=== PATIENT | female | born 1945 | race Caucasian/White ===

== ENCOUNTER 2017-04-01 09:53 | Emergency (ER) | payer MEDICARE, BC ==
[2017-04-01 11:04] VITALS: BP 210/80
--- NOTE | 2017-04-01 11:21 | UC ---
Ear Complaint HPI - HPI Summary HPI Summary: 71 female presents with complaint of hearing loss in left ear x3 days. States it feels plugged. Denies FB, discharge, use of q-tips and fever/chills. Denies pain. States she just has significant hearing loss to where she can not hear when plugging her right ear. States it happened suddenly upon waking 3 days ago. Denies any trauma/injury or loud noises. Admits to hearing tinnitus at times. Denies headache, dizziness, other sensory problems and hearing loss in right ear. - History of Current Complaint Chief Complaint: UCEar Stated Complaint: EAR PAIN Time Seen by Provider: 04/01/17 10:57 Hx Obtained From: Patient Onset/Duration: Sudden Onset, Lasting Days - 3, Still Present Severity Initially: Mild Severity Currently: None Pain Intensity: 0 Pain Scale Used: 0-10 Numeric Aggravating Factors: Nothing Alleviating Factors: Nothing Associated Signs/Symptoms: Positive: Hearing Loss - Allergies/Home Medications Allergies/Adverse Reactions: Allergies Allergy/AdvReac Type Severity Reaction Status Date / Time Amphetamines Allergy See Comment Verified 04/01/17 10:51 Barbiturates Allergy See Comment Verified 04/01/17 10:51 Home Medications: Home Medications Amlodipine Besylate [Norvasc 5 mg tab] 1 tab PO DAILY 04/01/17 [History Confirmed 04/01/17] Carbidopa/Levodop 25/100 MG(*) [Sinemet 25/100 TAB(*)] 1 tab PO TID 04/01/17 [ History Confirmed 04/01/17] Cyclobenzaprine HCl [Flexeril 5 mg (NF)] 1 tab PO BEDTIME PRN 04/01/17 [History Confirmed 04/01/17] Hydrocodone-Acetaminophen [[place] 5-325 mg] 1 tab PO Q4HR PRN 04/01/17 [History Confirmed 04/01/17] Triamcinolone PASTE 0.1% (NF) [Triamcinolone 0.1% PASTE *] 1 applic TOPICAL BID 04/01/17 [History Confirmed 04/01/17] PMH/Surg Hx/FS Hx/Imm Hx - Additional Past Medical History Additional PMH: PMHx significant for HTN and prakinsons' - Surgical History Surgical History: Yes Surgery Procedure, Year, and Place: february 2004 spinal surgery; cholecystectomy/ appendectomy; T and A; bunion - Family History Known Family History: Positive: None - Social History Alcohol Use: Daily Substance Use Type: None Smoking Status (MU): Never Smoked Tobacco - Immunization History Most Recent Tetanus Shot: not sure Review of Systems Constitutional: Negative Skin: Negative Eyes: Negative ENT: Other - hearing loss Respiratory: Negative Cardiovascular: Negative Neurovascular: Negative Musculoskeletal: Negative Neurological: Negative All Other Systems Reviewed And Are Negative: Yes Physical Exam Triage Information Reviewed: Yes Appearance: Well-Appearing, No Pain Distress, Well-Nourished Vital Signs: Initial Vital Signs Temp 97.0 F 04/01/17 10:47 Pulse 71 04/01/17 10:47 Resp 16 04/01/17 10:47 Pulse Ox 99 04/01/17 10:47 Bp elevated 210/91 compared to previous visit and had similar BP. States her BP spikes when at doctor's office every time, it is monitored and she takes it at home where it is 130/70's range. Vital Signs Reviewed: Yes Eyes: Positive: Conjunctiva Clear ENT: Positive: Normal ENT inspection, Pharynx normal, TMs normal - normal EAC no cerumen or foreign body, no signs of infection, Other: - hearing abnormal on left ear with whisper hearing test. unable to hear in left ear, right ear normal.. Negative: TM bulging, TM dull, TM red Neck exam: Normal Neck: Positive: Supple, Nontender Respiratory: Positive: Chest non-tender, Lungs clear, Normal breath sounds, No respiratory distress, No accessory muscle use Cardiovascular: Positive: RRR, No Murmur, Pulses Normal Musculoskeletal: Positive: Strength Intact, ROM Intact Neurological: Positive: Alert Psychological: Positive: Age Appropriate Behavior Skin Exam: Normal Ear Complaint Course/Dx - Course Course Of Treatment: due to PE findings and HPI appears patient is suffering from possible sensorineural hearing loss as there is no sign of conductive hearing loss on exam. referred to ENT however patient stated she goes through [facility] and would like to stay in the same system. Will follow up. Aware of worsening signs and symptoms. - Differential Dx/Diagnosis Provider Diagnoses: Hearing impairment/loss left ear Discharge - Discharge Plan Condition: Stable Disposition: HOME Patient Education Materials: Hearing Loss (ED) Referrals: No Primary Care Phys,NOPCP [Primary Care Provider] - Additional Instructions: Please make an appointment with ENT at [facility] to be seen within the next week or two. If new symptoms develop or worsen please return or seek medical attention promptly.
== END 2017-04-01 11:25 | disposition home or self-care (01) ==
LOC: UCEAST 09:53
DX: H91.92 Unspecified hearing loss, left ear (principal)
CPT/HCPCS: 99211; G0463

== ENCOUNTER 2019-05-29 21:10 | Emergency (ER) | payer MEDICARE, BC ==
[2019-05-29 22:38] LABS: ABS Eosinophils 0.2 10^3/ul (0-0.6); ABS Lymphocytes 1.2 10^3/ul (1.0-4.8); ABS Monocytes 0.6 10^3/ul (0-0.8); ABS Neutrophils 4.6 10^3/ul (1.5-7.7); Eosinophil % 2.4 %; Hematocrit 39 % (35-47); Hemoglobin 13.6 g/dL (12.0-16.0); Lymphocyte % 17.8 %; Mean Corpuscular HGB Conc 35 g/dL (31-36); Mean Corpuscular Hemoglobin 31 pg (27-31); Mean Corpuscular Volume 91 fL (80-97); Mean Platelet Volume 8.6 fL (7.4-10.4); Platelet Count 225 10^3/uL (150-450); Red Blood Count 4.36 10^6 /uL (3.70-4.87); Red Cell Distribution Width 14 % (10-15); White Blood Count 6.6 10^3/uL (3.5-10.8)
[2019-05-29 22:56] LABS: Albumin 4.2 g/dL (3.2-5.2); Albumin/Globulin Ratio 1.8 (1-3); BUN/Creatinine Ratio 38.7 (8-20); Calcium 9.2 mg/dL (8.6-10.3); EGFR African American 71.5 (>60); EGFR Non-African American 59.1 (>60); Globulin 2.3 g/dL (2-4); Magnesium 2.2 mg/dL (1.9-2.7); Potassium 3.6 mmol/L (3.5-5.0); Total Bilirubin 0.4 mg/dL (0.2-1.0); Total Protein 6.5 g/dL (6.4-8.9)
[2019-05-29 22:58] LABS: Troponin I 0.01 ng/mL (<0.04)
--- NOTE | 2019-05-30 00:06 | ED ---
Neurological HPI - HPI Summary HPI Summary: 73 year old F presenting to [facility] with a chief complaint of falling while doing the dishes secondary to losing balance occurring tonight. She was unable to stand back up because of failure to initiate movement in her lower extremities, secondary to Parkinsons disease. The patient felt normal before the fall and reports no current pain. She fell on her buttocks and didn't hit her head. Her was concerned because her speech was slow and she had trouble initiating movement. She denies lightheadedness, headache, chest pain, shortness of breath, or nausea. Patient is currently able to ambulate. History of arthritis. - History of Current Complaint Chief Complaint: EDFall Stated Complaint: FELL DOING DISHES PER PT Time Seen by Provider: 05/29/19 23:49 Hx Obtained From: Patient Onset/Duration: Sudden Onset Timing: Sudden Onset Onset Severity: Mild Current Severity: None Pain Intensity: 0 Pain Scale Used: 0-10 Numeric Character: Motor Weakness, Other: - loss of balance Aggravating: Unknown Alleviating: Spontanious Resolution Associated Signs and Symptoms: Negative: Headache, Lightheadness, Nausea/ Vomiting, Chest Pain - Allergy/Home Medications Allergies/Adverse Reactions: Allergies Allergy/AdvReac Type Severity Reaction Status Date / Time MS Amphetamines Allergy See Comment Verified 05/29/19 21:21 [Amphetamines] MS Barbiturates Allergy See Comment Verified 05/29/19 21:21 [Barbiturates] PMH/Surg Hx/FS Hx/Imm Hx Previously Healthy: Yes Cardiovascular History: Reports: Hx Hypertension Musculoskeletal History: Reports: Hx Arthritis - Surgical History Surgery Procedure, Year, and Place: february 2004 spinal surgery; cholecystectomy/ appendectomy; T and A; bunion Infectious Disease History: No Infectious Disease History: Denies: Hx Clostridium Difficile, Hx Hepatitis, Hx Human Immunodeficiency Virus (HIV), Hx of Known/Suspected MRSA, Hx Shingles, Hx Tuberculosis, Hx Known/ Suspected VRE, Hx Known/Suspected VRSA, History Other Infectious Disease, Traveled Outside the [place] in Last 30 Days - Family History Known Family History: Positive: None - Social History Alcohol Use: Daily Substance Use Type: Reports: None Smoking Status (MU): Never Smoked Tobacco Review of Systems Negative: Chest Pain Negative: Shortness Of Breath Negative: Nausea Neurological: Negative - lightheadedness, Other - difficulty initiating motor movement Negative: Headache All Other Systems Reviewed And Are Negative: Yes Physical Exam - Summary Physical Exam Summary: Appearance: Well-appearing, Well-nourished, lying in bed comfortably Skin: Warm, dry, no obvious rash Eyes: sclera anicteric, no conjunctival pallor ENT: mucous membranes moist, pharynx appears normal Neck: Supple, nontender Respiratory: Clear to auscultation, no signs of respiratory distress Cardiovascular: Normal S1, S2. No murmurs. Normal distal pulses in tibial and radial bilaterally. Abdomen: Soft, nontender, normal active bowel sounds present Musculoskeletal: Normal, Strength/ROM Intact, Motor function in all 4 extremities is normal and symmetric. There is no rigidity or tremor noted. Neurological: A&Ox3, awake and alert, mentation is normal, speech is fluent and appropriate, Level of consciousness nml. The patient is alert and oriented. Cranial nerves are grossly intact. Gaze is conjugate and without nystagmus. Peripheral vision is intact to confrontation. There are no gross sensory abnormalities to light touch. There is no truncal or fine motor ataxia. Gait is normal. Psychiatric: affect is normal, does not appear anxious or depressed Triage Information Reviewed: Yes Vital Signs On Initial Exam: Initial Vitals Temp Pulse Resp BP Pulse Ox 97.6 F 54 15 127/63 96 05/29/19 21:17 05/29/19 21:17 05/29/19 21:17 05/29/19 21:17 05/29/19 21:17 Vital Signs Reviewed: Yes Diagnostics - Vital Signs Vital Signs Temp Pulse Resp BP Pulse Ox 05/29/19 21:17 97.6 F 54 15 127/63 96 - Laboratory Lab Results: Lab Results 05/29/19 05/29/19 05/29/19 Range/Units 22:23 22:23 22:23 WBC 6.6 (3.5-10.8) 10^3/uL RBC 4.36 (3.70-4.87) 10^6 /uL Hgb 13.6 (12.0-16.0) g/dL Hct 39 (35-47) % MCV 91 (80-97) fL MCH 31 (27-31) pg MCHC 35 (31-36) g/dL RDW 14 (10-15) % Plt Count 225 (150-450) 10^3/uL MPV 8.6 (7.4-10.4) fL Neut % (Auto) 70.0 % Lymph % (Auto) 17.8 % [place] % (Auto) 9.3 % Eos % (Auto) 2.4 % Baso % (Auto) 0.5 % Absolute Neuts (auto) 4.6 (1.5-7.7) 10^3/ul Absolute Lymphs (auto) 1.2 (1.0-4.8) 10^3/ul Absolute Monos (auto) 0.6 (0-0.8) 10^3/ul Absolute Eos (auto) 0.2 (0-0.6) 10^3/ul Absolute Basos (auto) 0.0 (0-0.2) 10^3/ul Absolute Nucleated RBC 0.0 10^3/ul Nucleated RBC % 0.0 Sodium 135 (135-145) mmol/L Potassium 3.6 (3.5-5.0) mmol/L Chloride 98 L (101-111) mmol/L Carbon Dioxide 28 (22-32) mmol/L Anion Gap 9 (2-11) mmol/L BUN 36 H (6-24) mg/dL Creatinine 0.93 (0.51-0.95) mg/dL Est GFR ( Amer) 71.5 (>60) Est GFR (Non-Af Amer) 59.1 (>60) BUN/Creatinine Ratio 38.7 H (8-20) Glucose 99 (70-100) mg/dL Lactic Acid 1.9 (0.5-2.0) mmol/L Calcium 9.2 (8.6-10.3) mg/dL Magnesium 2.2 (1.9-2.7) mg/dL Total Bilirubin 0.40 (0.2-1.0) mg/dL AST 24 (13-39) U/L ALT 6 L (7-52) U/L Alkaline Phosphatase 73 (34-104) U/L Troponin I 0.01 (<0.04) ng/mL Total Protein 6.5 (6.4-8.9) g/dL Albumin 4.2 (3.2-5.2) g/dL Globulin 2.3 (2-4) g/dL Albumin/Globulin Ratio 1.8 (1-3) TSH Pending Result Diagrams: 05/29/19 22:23 05/29/19 22:23 Lab Statement: Any lab studies that have been ordered have been reviewed, and results considered in the medical decision making process. - EKG 23:24 Cardiac Rate: Bradycardia - 58 bpm EKG Rhythm: Sinus Rhythm Summary of EKG Findings: EKG at 23:24 shows sinus bradycardia at 58 BPM, P waves , QRS complex, and T waves are within normal limits, T waves and intervals are normal, no ischemic changes. This is a normal EKG. Re-Evaluation - Re-Evaluation First Eval Re-Evaluation Time: 23:55 Comment: We discussed all results and plan for discharge home. Course/Dx - Course Course Of Treatment: 73 year old MF presenting to [facility] with a chief complaint of falling secondary to loss of balance followed by difficultly initiating motor movement likely due to hx of Parkinson's disease. Physical exam is normal. EKG at 23:24 shows sinus bradycardia at 58 BPM, P waves, QRS complex, and T waves are within normal limits, T waves and intervals are normal, no ischemic changes. This is a normal EKG. Laboratory results show a chloride of 98 L, a BUN of 36 H, a BUN/Creatinine ratio of 38.7 H, and an ALT of 6 L. We discussed all results and plan for discharge home with follow up with her neurolgist. She understands and agrees with this plan. Her diagnosis is Parkinsons Disease. - Diagnoses Provider Diagnoses: Parkinson's disease Is Visit Related: No Discharge ED - Sign-Out/Discharge Documenting (check all that apply): Patient Departure - Patient will be discharged home. Patient Received Moderate/Deep Sedation with Procedure: No - Discharge Plan Condition: Good Disposition: HOME Patient Education Materials: Parkinson Disease (ED) Referrals: Kade Cuenca MD [Primary Care Provider] - 3 Days Additional Instructions: I don't think what happened tonight is suggestive of a stroke or something else serious. Since you are feeling back to normal, I think it is safe for you to go home and followup with your neurologist during the week. - Billing Disposition and Condition Condition: GOOD Disposition: Home - Attestation Statements Document Initiated by Scribe: Yes Documenting Scribe: Von Ziegler Provider For Whom Scribe is Documenting (Include Credential): Nahum Mehta MD. Scribe Attestation: I, Von Ziegler, scribed for Nahum Mehta MD. on 05/31/19 at 0459. Scribe Documentation Reviewed: Yes Provider Attestation: The documentation as recorded by the scribe, Von Ziegler accurately reflects the service I personally performed and the decisions made by me, Nahum Mehta MD. Status of Scribe Document: Viewed
[2019-05-30 00:08] LABS: TSH (Thyroid Stimulating Horm) 1.23 mcIU/mL (0.34-5.60)
[2019-05-30 01:00] VITALS: BP 128/64
== END 2019-05-30 00:20 | disposition home or self-care (01) ==
LOC: ED 21:10
DX: G20 Parkinson's disease (principal); W18.30XA Fall on same level, unspecified, initial encounter; Y93.G1 Activity, food preparation and clean up; Y92.000 Kitchen of unspecified non-institutional (private) residence as the place of occurrence of the external cause; R00.1 Bradycardia, unspecified; I10 Essential (primary) hypertension; Z88.8 Allergy status to other drugs, medicaments and biological substances
CPT/HCPCS: 36415; 80053; 83605; 83735; 84443; 84484; 85025; 93005; 99282